=== PATIENT | male | born 1985 | race Caucasian/White ===

== ENCOUNTER 2021-04-08 03:32 | Emergency (ER) | payer OTHER ==
[~2021-04-08] VITALS: Ht 177.8 cm; Wt 84.6 kg
[2021-04-08] MEDS ORDERED: FUROSEMIDE 40MG/4ML VIAL (J1940) IV ONE (05:40)
[2021-04-08 05:46] LABS: BASO # 0.1 10^3/uL (0.0-0.2); BASO % 0.5 % (0.0-1.0); EOS # 0.6 10^3/uL (0.0-0.5); HEMATOCRIT 47.2 % (42.0-52.0); HEMOGLOBIN 15.2 g/dl (13.5-17.5); LYMPH # 3.7 10^3/uL (1.5-5.0); LYMPH % 31.4 % (24.0-44.0); MEAN CORPUSCULAR HEMOGLOBIN 30.8 pg (27.0-33.0); MEAN CORPUSCULAR HGB CONC 32.2 g/dl (32.0-36.5); MEAN CORPUSCULAR VOLUME 95.7 fl (80.0-96.0); MONO # 0.9 10^3/uL (0.0-0.8); MONO % 7.6 % (2.0-8.0); NEUTROPHILS # 6.4 10^3/uL (1.5-8.5); NEUTROPHILS % 55.1 % (36.0-66.0); PLATELET COUNT, AUTOMATED 316 10^3/uL (150-450); RED BLOOD COUNT 4.93 10^6/uL (4.30-6.10); WHITE BLOOD COUNT 11.7 10^3/uL (4.0-10.0)
[2021-04-08 06:10] LABS: ALBUMIN 3.3 GM/DL (3.2-5.2); ALT/SGPT 337 U/L (12-78); BILIRUBIN,DIRECT 0.1 MG/DL (0.0-0.2); BILIRUBIN,TOTAL 0.3 MG/DL (0.2-1.0); BLOOD UREA NITROGEN 15 MG/DL (7-18); CALCIUM LEVEL 8.4 MG/DL (8.5-10.1); CARBON DIOXIDE LEVEL 26 MEQ/L (21-32); CHLORIDE LEVEL 108 MEQ/L (98-107); CK-MB VALUE MASS 4.3 NG/ML (<3.6); CPK CREATINE PHOSPHOKINASE 140 U/L (39-308); CREATININE FOR GFR 0.86 MG/DL (0.70-1.30); GLOMERULAR FILTRATION RATE > 60.0 (>60); GLUCOSE, FASTING 91 MG/DL (70-100); MB/CK RELATIVE INDEX 3.07 (< OR =4); NT-PRO BNP 4278 PG/ML (<125); POTASSIUM SERUM 4.3 MEQ/L (3.5-5.1); SODIUM LEVEL 140 MEQ/L (136-145); TOTAL PROTEIN 6.6 GM/DL (6.4-8.2); TROPONIN I 0.03 NG/ML (< 0.10)
--- NOTE | 2021-04-08 06:25 | REPVR ---
PROCEDURE INFORMATION: Exam: XR Chest Exam date and time: 04/08/21 (5:45am) Age: 36 years old Clinical indication: Cough and dyspnea TECHNIQUE: Imaging protocol: Portable CXR Views: 1 view COMPARISON: No relevant prior studies available FINDINGS: No prior chest films are available for comparison. Cardiomegaly. Mildly hazy markings in the mid lung zones and at the right lung base. No consolidation. No pleural effusions. Mild elevation of the right hemidiaphragm. No pneumothorax. IMPRESSION: Cardiomegaly. Mildly prominent markings in the mid lung zones and at the right lung base. Possible nonspecific pneumonitis, eg. Clinical correlation and follow-up are suggested. Electronically signed by: Jania Wyatt On 04/08/2021 06:25:33 AM
[2021-04-08 06:31] LABS: ETHYL ALCOHOL (ETHANOL) < 0.003 % (0.000-0.010)
[2021-04-08] MEDS ORDERED: ISOVUE-370 76% 100ML VIAL As Ordered ONE (06:32)
--- NOTE | 2021-04-08 06:39 | REPVR ---
PROCEDURE INFORMATION: Exam: US Duplex Lower Extremity Veins, Bilateral Exam date and time: 04/08/21 (6:18am) Age: 36 years old Clinical indication: Bilateral lower leg swelling. SOB. TECHNIQUE: Imaging protocol: Real-time duplex ultrasound of the extremities with 2-D haynes scale, color Doppler flow and spectral waveform analysis with image documentation. Complete exam focused on the bilateral lower extremity veins. COMPARISON: No relevant prior studies available FINDINGS: Right deep veins: Unremarkable. The common femoral, femoral, proximal profunda femoral and popliteal veins are patent without thrombus. Normal Doppler waveforms. Normal compressibility and/or augmentation response. Right superficial veins: Saphenofemoral junction is patent without thrombus. Left deep veins: Unremarkable. The common femoral, femoral, proximal profunda femoral and popliteal veins are patent without thrombus. Normal Doppler waveforms. Normal compressibility and/or augmentation response. Left superficial veins: Saphenofemoral junction is patent without thrombus. Soft tissues: Unremarkable. IMPRESSION: No evidence of deep vein thrombosis (both legs examined). Electronically signed by: Jania Wyatt On 04/08/2021 06:38:13 AM
--- NOTE | 2021-04-08 07:20 | REPVR ---
PROCEDURE INFORMATION: Exam: CT Abdomen And Pelvis With Contrast Exam date and time: 04/08/2021 6:27 AM Age: 36 years old Clinical indication: Pain; Other: Chest; Additional info: Chest pain, SOB, tachy TECHNIQUE: Imaging protocol: Computed tomography of the abdomen and pelvis with contrast. Radiation optimization: All CT scans at this facility use at least one of these dose optimization techniques: automated exposure control; mA and/or kV adjustment per patient size (includes targeted exams where dose is matched to clinical indication); or iterative reconstruction. Contrast material: ISO; Contrast volume: 100 ml; Contrast route: INTRAVENOUS (IV); COMPARISON: No relevant prior studies available. FINDINGS: Pleural spaces: Cardiomegaly is present with a moderate-sized layering right pleural effusion and patchy areas of questionable interstitial pulmonary edema in both lungs especially the right lung base. There is additionally retrograde IV contrast reflux from the right atrium into the IVC and hepatic veins. This can be a normal variant due to the high volume IV contrast injection rates typically employed for a CT exam, however, it can also be seen in right heart strain and various types of right heart disease, such as pulmonary hypertension, tricuspid regurgitation and right ventricular systolic dysfunction. Liver: Normal. No mass. Gallbladder and bile ducts: Questionable acute cholecystitis. The gallbladder is somewhat distended and contains slightly high density material which could be gallbladder sludge or an aggregation of small gallstones. There is questionable pericholecystic inflammatory change and some fluid extending into the right anterior pararenal space on images 67 through 69 of series 501. I would recommend a gallbladder ultrasound for further initial workup. Pancreas: Normal. No ductal dilation. Spleen: Normal. No splenomegaly. Adrenal glands: Normal. No mass. Kidneys and ureters: Normal. No hydronephrosis. Stomach and bowel: Unremarkable. No obstruction. No mucosal thickening. Appendix: No evidence of appendicitis. Intraperitoneal space: Unremarkable. No free air. No significant fluid collection. Vasculature: See "Pleural spaces" finding. Lymph nodes: Unremarkable. No enlarged lymph nodes. Urinary bladder: Unremarkable as visualized. Reproductive: Unremarkable as visualized. 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 Soft tissues: Unremarkable. IMPRESSION: 1. Cardiomegaly is present with a moderate-sized layering right pleural effusion and patchy areas of questionable interstitial pulmonary edema in both lungs especially the right lung base. There is additionally retrograde IV contrast reflux from the right atrium into the IVC and hepatic veins. This can be a normal variant due to the high volume IV contrast injection rates typically employed for a CT exam, however, it can also be seen in right heart strain and various types of right heart disease, such as pulmonary hypertension, tricuspid regurgitation and right ventricular systolic dysfunction. 2. Questionable acute cholecystitis. The gallbladder is somewhat distended and contains slightly high density material which could be gallbladder sludge or an aggregation of small gallstones. There is questionable pericholecystic inflammatory change and some fluid extending into the right anterior pararenal space on images 67 through 69 of series 501. I would recommend a gallbladder ultrasound for further initial workup. 3. 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 Electronically signed by: Javon Cazares On 04/08/2021 07:20:00 AM
--- NOTE | 2021-04-08 07:32 | REPVR ---
PROCEDURE INFORMATION: Exam: CTA Chest With Contrast Exam date and time: 04/08/2021 6:27 AM Age: 36 years old Clinical indication: Pain; Other: Chest; Additional info: Chest pain, SOB, tachy TECHNIQUE: Imaging protocol: Computed tomographic angiography of the chest with contrast. 3D rendering (Not supervised by radiologist): MIP and/or 3D reconstructed images were created by the technologist. Radiation optimization: All CT scans at this facility use at least one of these dose optimization techniques: automated exposure control; mA and/or kV adjustment per patient size (includes targeted exams where dose is matched to clinical indication); or iterative reconstruction. Contrast material: ISO; Contrast volume: 100 ml; Contrast route: INTRAVENOUS (IV); COMPARISON: CR PORTABLE CHEST X-RAY 04/08/2021 5:43 AM FINDINGS: Pulmonary arteries: No acute pulmonary emboli present in the bilateral pulmonary arteries. Aorta: No CT evidence of thoracic aortic aneurysm or acute intramural thoracic aortic hematoma. Lungs: Cardiomegaly is present with a moderate-sized layering right pleural effusion and patchy areas of questionable interstitial pulmonary edema in both lungs especially the right lung base. There is additionally retrograde IV contrast reflux from the right atrium into the IVC and hepatic veins. This can be a normal variant due to the high volume IV contrast injection rates typically employed for a CT exam, however, it can also be seen in right heart strain and various types of right heart disease, such as pulmonary hypertension, tricuspid regurgitation and right ventricular systolic dysfunction. Pleural spaces: Unremarkable. No pneumothorax. No pleural effusion. Heart: No significant coronary artery calcification is present. Lymph nodes: Mildly prominent lymph nodes are seen in the mediastinum. Bones/joints: The bony structures of the chest are normal. Soft tissues: Unremarkable. IMPRESSION: 1. No CT evidence of acute pulmonary emboli. 2. Cardiomegaly is present with a moderate-sized layering right pleural effusion and patchy areas of questionable interstitial pulmonary edema in both lungs especially the right lung base. There is additionally retrograde IV contrast reflux from the right atrium into the IVC and hepatic veins. This can be a normal variant due to the high volume IV contrast injection rates typically employed for a CT exam, however, it can also be seen in right heart strain and various types of right heart disease, such as pulmonary hypertension, tricuspid regurgitation and right ventricular systolic dysfunction. 3. The heart size is normal. Normal pulmonary vasculature. No significant coronary artery calcification is present. 4. No CT evidence of thoracic aortic aneurysm or acute intramural thoracic aortic hematoma. 5. Mildly prominent lymph nodes are seen in the mediastinum. 6. The bony structures of the chest are normal. Electronically signed by: Javon Cazares On 04/08/2021 07:31:57 AM
--- NOTE | 2021-04-08 08:30 | REP ---
INDICATION: gallstones COMPARISON: None. TECHNIQUE: Real time haynes scale ultrasound examination using curved array transducer. FINDINGS: Liver and pancreas are normal in contour, size, and echogenicity without focal hepatic or pancreatic lesions identified. The gallbladder demonstrates multiple folds along with wall thickening and possible small amount of pericholecystic fluid, but no evidence for gallstones or biliary ductal dilatation. Common bile duct measures 4 mm diameter. Right kidney is normal in reniform shape without hydronephrosis and measures 12.1 x 5.7 x 4.6 cm. No ascites in the visualized right upper quadrant. IMPRESSION: 1. Questionable gallbladder wall thickening and pericholecystic fluid warrants clinical/physical correlation. No gallstones or biliary ductal dilatation. 2. Otherwise normal right upper quadrant ultrasound. <Electronically signed by Heath Luu > 04/08/21 [id number]
[2021-04-08 08:31] VITALS: BP 142/103
--- NOTE | 2021-04-08 19:46 | ECGEPIP ---
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
== END 2021-04-08 08:58 | disposition left against medical advice (07) ==
LOC: M ED 03:32
DX: I50.9 Heart failure, unspecified (principal); R14.0 Abdominal distension (gaseous); J91.8 Pleural effusion in other conditions classified elsewhere; R91.8 Other nonspecific abnormal finding of lung field; I51.7 Cardiomegaly; R00.0 Tachycardia, unspecified; Z53.9 Procedure and treatment not carried out, unspecified reason; F17.200 Nicotine dependence, unspecified, uncomplicated
CPT/HCPCS: 36600; 71045; 71275; 74177; 76705; 80048; 80076; 82077; 82550; 82553; 83605; 83880; 85025; 87798; 93005; 93041; 93970; 94760; 96374; 99285; J1940; Q9967

== ENCOUNTER 2021-05-25 00:15 | Emergency (ER) | payer OTHER ==
[~2021-05-25] VITALS: Ht 180.3 cm; Wt 94.5 kg
[2021-05-25] MEDS ORDERED: ASPI-161 PO (00:20)
[2021-05-25] MEDS ORDERED: LASI40TA9 PO (00:20)
[2021-05-25] MEDS ORDERED: POTA20TA6 PO (00:20)
[2021-05-25 01:25] LABS: BASO # 0.1 10^3/uL (0.0-0.2); BASO % 0.9 % (0.0-1.0); EOS # 0.2 10^3/uL (0.0-0.5); EOS % 1.9 % (0.0-3.0); HEMOGLOBIN 12.8 g/dl (13.5-17.5); LYMPH # 2.8 10^3/uL (1.5-5.0); LYMPH % 27.7 % (24.0-44.0); MEAN CORPUSCULAR HEMOGLOBIN 27.4 pg (27.0-33.0); MEAN CORPUSCULAR HGB CONC 31.2 g/dl (32.0-36.5); MEAN CORPUSCULAR VOLUME 87.8 fl (80.0-96.0); MONO % 9.6 % (2.0-8.0); NEUTROPHILS # 5.9 10^3/uL (1.5-8.5); NEUTROPHILS % 59.4 % (36.0-66.0); PLATELET COUNT, AUTOMATED 350 10^3/uL (150-450); RED BLOOD COUNT 4.67 10^6/uL (4.30-6.10); WHITE BLOOD COUNT 9.9 10^3/uL (4.0-10.0)
--- NOTE | 2021-05-25 01:50 | REPVR ---
PROCEDURE INFORMATION: Exam: XR Chest Exam date and time: 05/25/2021 1:27 AM Age: 36 years old Clinical indication: Cough and shortness of breath; Additional info: Dyspnea TECHNIQUE: Imaging protocol: XR of the chest. Views: 1 view. COMPARISON: 1. CR PORTABLE CHEST X-RAY 04/08/2021 5:[address] ANGIO CHEST 04/08/2021 6:35:46 AM FINDINGS: Lungs: Unremarkable. No consolidation. No pulmonary edema. Pleural spaces: Unremarkable. No pleural effusion. No pneumothorax. Heart/Mediastinum: The cardiac silhouette is enlarged and similar in size compared to the prior chest x-ray on 04/08/2021. The mediastinal contours are unremarkable. Bones/joints: Unremarkable. IMPRESSION: No acute findings. Cardiomegaly, which is similar in appearance compared to the prior chest x-ray on 04/08/2021. Electronically signed by: Errol Garcia On 05/25/2021 01:49:40 AM
[2021-05-25 01:55] LABS: ALBUMIN 2.8 GM/DL (3.2-5.2); ALT/SGPT 84 U/L (12-78); BILIRUBIN,DIRECT 0.3 MG/DL (0.0-0.2); BILIRUBIN,TOTAL 0.6 MG/DL (0.2-1.0); BLOOD UREA NITROGEN 15 MG/DL (7-18); CALCIUM LEVEL 8.3 MG/DL (8.5-10.1); CARBON DIOXIDE LEVEL 26 MEQ/L (21-32); CHLORIDE LEVEL 104 MEQ/L (98-107); CPK CREATINE PHOSPHOKINASE 575 U/L (39-308); CREATININE FOR GFR 0.95 MG/DL (0.70-1.30); GLOMERULAR FILTRATION RATE > 60.0 (>60); GLUCOSE, FASTING 97 MG/DL (70-100); NT-PRO BNP 4407 PG/ML (<125); POTASSIUM SERUM 3.5 MEQ/L (3.5-5.1); SODIUM LEVEL 137 MEQ/L (136-145); TOTAL PROTEIN 5.8 GM/DL (6.4-8.2); TROPONIN I 0.05 NG/ML (< 0.10)
[2021-05-25 02:02] LABS: RSV AMPLIFICATION NEGATIVE (NEGATIVE)
--- NOTE | 2021-05-25 02:37 | REPVR ---
PROCEDURE INFORMATION: Exam: CT Right Lower Extremity Without Contrast, Ankle Exam date and time: 05/25/2021 2:04 AM Age: 36 years old Clinical indication: Pain; Ankle; Right; Additional info: Talus fracture TECHNIQUE: Imaging protocol: CT of the Right lower extremity without contrast was performed. Exam focused on the ankle. Radiation optimization: All CT scans at this facility use at least one of these dose optimization techniques: automated exposure control; mA and/or kV adjustment per patient size (includes targeted exams where dose is matched to clinical indication); or iterative reconstruction. COMPARISON: No relevant prior studies available. FINDINGS: Bones/joints: There is no fracture or dislocation of the right ankle or right midfoot. The right talus is intact. No osteochondral lesion is identified. The joint spaces and alignment are maintained in the right ankle. No tarsal coalition is noted. There is no os trigonum. Soft tissues: There is soft tissue swelling and edema in the subcutaneous tissues around the right ankle and along the dorsal aspect of the right midfoot and forefoot. No drainable soft tissue fluid collection is identified. IMPRESSION: 1. No fracture or dislocation of the right ankle or right midfoot. Intact right talus. 2. Soft tissue swelling and edema in the subcutaneous tissues around the right ankle and along the dorsal aspect of the right foot. Electronically signed by: Errol Garcia On 05/25/2021 02:37:09 AM
[2021-05-25] MEDS ORDERED: FUROSEMIDE 100MG/10ML VIAL (J1940) IV ONE (02:45)
--- NOTE | 2021-05-25 02:46 | REPVR ---
PROCEDURE INFORMATION: Exam: CT Lumbar Spine Without Contrast Exam date and time: 05/25/2021 2:04 AM Age: 36 years old Clinical indication: Injury or trauma; Fall; Blunt trauma (contusions or hematomas); Prior surgery; Surgery date: 6+ months TECHNIQUE: Imaging protocol: Computed tomography images of the lumbar spine without contrast. Radiation optimization: All CT scans at this facility use at least one of these dose optimization techniques: automated exposure control; mA and/or kV adjustment per patient size (includes targeted exams where dose is matched to clinical indication); or iterative reconstruction. COMPARISON: CT ABD/PEL W/IV CONTRAST ONLY 04/08/2021 6:35 AM FINDINGS: Vertebrae: There are 5 non-rib bearing lumbar type vertebral bodies. There is no fracture. The vertebral body heights are preserved. No suspicious osteolytic or osteoblastic lesion is noted. No bony destructive changes are present. T11-T12: The disc height is preserved. No disc herniation, spinal canal stenosis, lateral recess stenosis, or neural foraminal stenosis is noted. The facet joints are unremarkable. These findings are similar in appearance compared to the prior CT abdomen and pelvis on 04/08/2021. T12-L1: The disc height is preserved. No disc herniation, spinal canal stenosis, lateral recess stenosis, or neural foraminal stenosis is noted. The facet joints are unremarkable. These findings are similar in appearance compared to the prior CT abdomen and pelvis on 04/08/2021. L1-L2: The disc height is preserved. No disc herniation, spinal canal stenosis, lateral recess stenosis, or neural foraminal stenosis is noted. The facet joints are unremarkable. These findings are similar in appearance compared to the prior CT abdomen and pelvis on 04/08/2021. L2-L3: The disc height is preserved. No disc herniation, spinal canal stenosis, lateral recess stenosis, or neural foraminal stenosis is noted. There is mild osteoarthritis of the right facet joint. These findings are similar in appearance compared to the prior CT abdomen and pelvis on 04/08/2021. L3-L4: The disc height is preserved. No disc herniation, spinal canal stenosis, lateral recess stenosis, or neural foraminal stenosis is noted. There is mild osteoarthritis of the facet joints. These findings are similar in appearance compared to the prior CT abdomen and pelvis on 04/08/2021. L4-L5: There is mild loss of disc height dorsally, a broad-based posterior protrusion, thickening of the ligamentum flavum, and mild hypertrophy of the facet joints. There is moderate stenosis of the thecal sac, moderate stenosis of the lateral recesses, and minimal bilateral neural foraminal stenosis. These findings are similar in appearance compared to the prior CT abdomen and pelvis on 04/08/2021. L5-S1: There is severe loss of disc height, vacuum phenomenon in the intervertebral disc, a broad-based posterior protrusion, a 3 mm retrolisthesis of L5 on S1, endplate spurs projecting anteriorly, and mild hypertrophy of the facet joints. No spinal canal stenosis, lateral recess stenosis, or neural foraminal stenosis is noted. These findings are similar in appearance compared to the prior CT abdomen and pelvis on 04/08/2021. Pleural space: There is a small right pleural effusion that was not fully imaged. Intraperitoneal space: There is a small amount of free fluid in the abdomen and pelvis. Vasculature: No abdominal aortic aneurysm. Mild atherosclerotic calcifications are present. Soft tissues: There is nonspecific edema in the subcutaneous tissues posteriorly along the lumbar spine. IMPRESSION: 1. No fracture in the lumbar spine. 2. L4-L5: moderate stenosis of the thecal sac, moderate stenosis of the lateral recesses, and minimal bilateral neural foraminal stenosis, which is similar in appearance compared to the prior CT abdomen and pelvis on 04/08/2021. 3. Small right pleural effusion and a small amount of free fluid in the abdomen and pelvis. Electronically signed by: Errol Garcia On 05/25/2021 02:45:59 AM
[2021-05-25 03:52] VITALS: BP 130/98
--- NOTE | 2021-05-25 06:01 | ECGEPIP ---
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
--- NOTE | 2021-05-25 06:12 | ED PDOC ---
Post-Departure Follow-Up certified letter sent to pt. pt left ama. please obtain pcp name and fax cxr, ct ls spine, ct right ankle to for fu Jesús Gonzales MD May 25, 2021 06:12
== END 2021-05-25 04:00 | disposition left against medical advice (07) ==
LOC: M ED 00:15
DX: I50.20 Unspecified systolic (congestive) heart failure (principal); I50.30 Unspecified diastolic (congestive) heart failure; I42.0 Dilated cardiomyopathy; M25.571 Pain in right ankle and joints of right foot; Z53.9 Procedure and treatment not carried out, unspecified reason; M48.061 Spinal stenosis, lumbar region without neurogenic claudication; J90 Pleural effusion, not elsewhere classified; R00.0 Tachycardia, unspecified; F17.200 Nicotine dependence, unspecified, uncomplicated; Z79.899 Other long term (current) drug therapy
CPT/HCPCS: 71045; 72131; 73700; 80048; 80076; 82550; 82553; 83880; 84443; 85025; 87631; 93005; 93041; 94760; 96374; 99284; J1940